=== PATIENT | male | born 1975 | race Caucasian/White ===

== ENCOUNTER → 2018-10-06 | Outpatient (REF) ==
[~2018-10-06] MED LIST: SM I100T OR
--- NOTE | 2018-10-07 01:32 | REP ---
Clinical: Pain and disability. Technique: AP, lateral, bilateral oblique views of the right ankle. Findings: Subtle cortical irregularity at the medial and lateral malleoli suggest minimal degenerative change. Ankle mortise and tibial plafond appear intact and relatively normal. No evidence for acute or healed injury. Surrounding soft tissues are unremarkable. Impression: Generalized age-related changes. Electronically Signed by Jorge Alberto Wood MD 10/07/2018 01:24 A
--- NOTE | 2018-10-07 01:52 | REP ---
Clinical: Pain and disability. Technique: AP, lateral, coned-down views of the lumbosacral spine. Findings: Very subtle dextroconvex scoliosis is suggested. Lordosis and alignment maintained. Minimal degenerative change at L5-S1 with endplate sclerosis and subtle disc space narrowing along with mild hypertrophic facet change. Impression: Mild spondylosis and L5-S1. Electronically Signed by Jorge Alberto Wood MD 10/07/2018 01:44 A
== END ==
LOC: M SMT 10:42
PROVIDERS: ATTEND Internal Medicine
DX: Z02.71 Encounter for disability determination (principal)

== ENCOUNTER 2023-12-04 15:37 | Emergency (ER) | payer MEDICARE, OTHER ==
[~2023-12-04] VITALS: Ht 175.3 cm; Wt 80.1 kg
[2023-12-04 16:14] LABS: BASO % 0.3 % (0.0-1.0); EOS # 0.2 10^3/uL (0.0-0.5); EOS % 1.4 % (0.0-3.0); HEMATOCRIT 41.5 % (42.0-52.0); HEMOGLOBIN 14.3 g/dl (13.5-17.5); LYMPH # 1.7 10^3/uL (1.5-5.0); LYMPH % 14.7 % (24.0-44.0); MEAN CORPUSCULAR HEMOGLOBIN 31.9 pg (27.0-33.0); MEAN CORPUSCULAR HGB CONC 34.5 g/dl (32.0-36.5); MEAN CORPUSCULAR VOLUME 92.6 fl (80.0-96.0); MONO # 0.8 10^3/uL (0.0-0.8); MONO % 6.8 % (2.0-8.0); NEUTROPHILS # 9.1 10^3/uL (1.5-8.5); NEUTROPHILS % 76.5 % (36.0-66.0); PLATELET COUNT, AUTOMATED 265 10^3/uL (150-450); RED BLOOD COUNT 4.48 10^6/uL (4.30-6.10); WHITE BLOOD COUNT 11.8 10^3/uL (4.0-10.0)
[2023-12-04 16:23] LABS: LIPASE 30 U/L (12-53)
[2023-12-04 16:25] LABS: ALBUMIN 4.3 G/DL (3.2-5.2); ALKALINE PHOSPHATASE 69 U/L (46-116); ALT/SGPT 21 U/L (7.0-40); AST/SGOT 15 U/L (<34); BILIRUBIN,DIRECT 0.1 MG/DL (<0.4); BILIRUBIN,TOTAL 0.4 MG/DL (0.3-1.2); CK-MB VALUE MASS < 1.0 NG/ML (<3.6); TOTAL PROTEIN 7.4 G/DL (5.7-8.2)
[2023-12-04 16:28] LABS: INR 1.01
[2023-12-04 16:29] LABS: CPK CREATINE PHOSPHOKINASE 76 U/L (46-171); MB/CK RELATIVE INDEX 1.31 (< OR =4)
[2023-12-04] MEDS: ASPIRIN 81MG CHEW TABLET PO ONE (17:07)
[2023-12-04 17:09] LABS: D-DIMER QUANT < 0.27 ug/mL (<0.5)
[2023-12-04 17:41] LABS: CK-MB VALUE MASS < 1.0 NG/ML (<3.6)
[2023-12-04 17:42] LABS: BLOOD UREA NITROGEN 23 MG/DL (9-23); CALCIUM LEVEL 9.8 MG/DL (8.5-10.1); CARBON DIOXIDE LEVEL 27 MMOL/L (20-31); CHLORIDE LEVEL 105 MMOL/L (98-107); CPK CREATINE PHOSPHOKINASE 74 U/L (46-171); CREATININE FOR GFR 0.89 MG/DL (0.70-1.30); GLOMERULAR FILTRATION RATE > 60.0 (>60); GLUCOSE, FASTING 96 MG/DL (60-100); MB/CK RELATIVE INDEX 1.35 (< OR =4); POTASSIUM SERUM 3.8 MMOL/L (3.5-5.1); SODIUM LEVEL 141 MMOL/L (136-145)
[2023-12-04] MEDS ORDERED: ASPI81TA26 PO (18:05)
[2023-12-04 18:18] VITALS: BP 134/77; TEMP 98.1; O2SAT 99
== END 2023-12-04 18:19 | disposition home or self-care (01) ==
LOC: M ED 15:37
DX: R07.89 Other chest pain (principal); Z91.89 Other specified personal risk factors, not elsewhere classified; Z91.040 Latex allergy status

== ENCOUNTER → 2024-06-10 | Outpatient (CLI) | payer OTHER ==
[~2024-06-10] MED LIST changes: +ASPI81TA26 PO
== END ==
LOC: M RAD 15:23
PROVIDERS: ATTEND Nurse Practitioner Family
DX: N28.1 Cyst of kidney, acquired (principal)

== ENCOUNTER → 2024-09-09 | Outpatient (CLI) | payer OTHER | LOC: M PLAIMG 09:29 | PROVIDERS: ATTEND Otolaryngology | DX: J34.2 Deviated nasal septum (principal); J34.89 Other specified disorders of nose and nasal sinuses ==

== ENCOUNTER 2024-11-15 11:06 | Day surgery (SDC) | payer OTHER ==
[~2024-11-15] VITALS: Ht 175.3 cm; Wt 84.0 kg
[~2024-11-15 11:06] MED LIST changes: +VITA100093 PO
[2024-11-15 11:36] LABS: HEMATOCRIT 41.6 % (42.0-52.0); HEMOGLOBIN 14.4 g/dl (13.5-17.5); MEAN CORPUSCULAR HEMOGLOBIN 31.8 pg (27.0-33.0); MEAN CORPUSCULAR HGB CONC 34.6 g/dl (32.0-36.5); MEAN CORPUSCULAR VOLUME 91.8 fl (80.0-96.0); PLATELET COUNT, AUTOMATED 219 10^3/uL (150-450); RED BLOOD COUNT 4.53 10^6/uL (4.30-6.10); WHITE BLOOD COUNT 4.4 10^3/uL (4.0-10.0)
[2024-11-15] MEDS ORDERED: ROCURONIUM BROMIDE 50MG/5ML VIAL As Ordered ONE (11:49)
[2024-11-15] MEDS ORDERED: propofoL 200 MG/20 ML VIAL As Ordered ONE (11:49)
[2024-11-15] MEDS ORDERED: SUGAMMADEX SODIUM 500 MG/5 ML VIAL (BRIDION) As Ordered ONE (11:49)
[2024-11-15] MEDS ORDERED: LIDOCAINE 2% 100MG/5ML SDV (FOR ANES.) As Ordered ONE (11:49)
[2024-11-15] MEDS ORDERED: ONDANSETRON 4MG 2ML VIAL As Ordered ONE (11:49)
[2024-11-15] MEDS ORDERED: fentaNYL 250 MCG/5 ML INJECTION As Ordered ONE (11:55)
[2024-11-15] MEDS ORDERED: MIDAZOLAM INJ 2MG/2ML VIAL As Ordered ONE (11:55)
[2024-11-15] MEDS ORDERED: ACETAMINOPHEN 1000MG/100ML IV BAG As Ordered ONE (13:37)
[2024-11-15] MEDS: COCAINE 4% 4ML NASAL SOLUTION BTL As Ordered ONE (13:40)
[2024-11-15] MEDS: OXYMETAZOLINE 0.05% NASAL SPRAY As Ordered ONE (14:30)
[2024-11-15] MEDS: LIDOCAINE W/EPINEPHRINE 1% 20ML VIAL As Ordered ONE (15:15)
[2024-11-15] MEDS ORDERED: ONDANSETRON 4MG 2ML VIAL IV PRN (15:30)
[2024-11-15] MEDS ORDERED: fentaNYL 100 MCG/2 ML INJECTION IV PRN (15:30)
[2024-11-15] MEDS ORDERED: oxyCODONE 5MG TAB PO PRN (15:30)
[2024-11-15 17:05] VITALS: BP 146/93; TEMP 97.8; O2SAT 99
== END 2024-11-15 17:34 | disposition home or self-care (01) ==
LOC: M SDC 11:06
PROVIDERS: ATTEND Otolaryngology
DX: J32.8 Other chronic sinusitis (principal); J34.2 Deviated nasal septum; J34.3 Hypertrophy of nasal turbinates; G47.33 Obstructive sleep apnea (adult) (pediatric); Z72.0 Tobacco use; Z91.040 Latex allergy status; Z91.048 Other nonmedicinal substance allergy status
CPT/HCPCS: 30140; 30520; 31253; 31267; 36415; 61782; 85027; 88305; C9143; J0131; J1100; J2250; J2405; J3010

== ENCOUNTER → 2025-03-25 | Outpatient (CLI) | payer OTHER | LOC: M CARPUL 15:07 | PROVIDERS: ATTEND Registered Nurse | DX: I77.810 Thoracic aortic ectasia (principal) ==

== ENCOUNTER → 2025-08-04 | Outpatient (CLI) | payer OTHER | LOC: M RAD 10:55 | PROVIDERS: ATTEND Nurse Practitioner Family | DX: N20.9 Urinary calculus, unspecified (principal) ==